=== PATIENT | male | born 1985 | race Caucasian/White ===

== ENCOUNTER → 2016-09-26 | Outpatient (CLI) | payer MEDICAID ==
[~2016-09-26] MED LIST: AMOXICILLIN 8751 TAB PO; AMOXICILLIN/CLA1 TA1 PO; BENADRYL25 M2 PO; CEPHALEXIN500 M1 PO; SUDAFED30 MG PO
== END ==
LOC: COL.PUL 13:48
DX: R06.02 Shortness of breath (principal)
CPT/HCPCS: J7674

== ENCOUNTER 2018-01-13 09:13 | Day surgery (SDC) | payer MEDICAID ==
[2018-01-13] VITALS (8 sets, daily range): BP systolic 112–138; BP diastolic 55–72; PULSE 51–68; TEMP 97.6–98.3
[~2018-01-13] VITALS: Ht 188 cm; Wt 80.0 kg
[2018-01-13 09:43] LABS: HEMATOCRIT 47.7 % (42.0-52.0); HEMOGLOBIN 16.5 g/dl (13.5-18.0); MEAN CELL VOLUME 91 fl (80.0-100.0); MEAN CORPUSCULAR HEMOGLOBIN 31 pg (27.0-31.0); MEAN CORPUSCULAR HGB CONC 35 g/dl (33.0-37.0); MEAN PLATELET VOLUME 9.2 fl (7.4-10.4); PLATELET COUNT 206 K/mm3 (130-400); RED BLOOD COUNT 5.27 M/mm3 (4.20-5.60); REDCELL DISTRIBUTION WIDTH-CV 13.2 % (11.5-14.5)
[2018-01-13 09:50] LABS: INR 0.9 (0.8-3.0); PROTHROMBIN TIME 10.6 SECONDS (9.7-12.8)
[2018-01-13 09:53] LABS: CALCIUM 9.5 mg/dL (8.4-10.2); CREATININE, serum 0.75 mg/dL (0.66-1.25); POTASSIUM 4.2 mmol/L (3.4-5.0)
[2018-01-14 05:17] VITALS: BP 121/58; PULSE 58; TEMP 98
[2018-01-14 07:38] VITALS: BP 114/65; PULSE 60; TEMP 97.8
[2018-01-14] MEDS ORDERED: CARDIZEM CD 12120 MG PO (11:05)
[2018-01-14] MEDS ORDERED: NORCO 325 MG-51 TAB PO (11:16)
== END 2018-01-14 11:55 | disposition home or self-care (01) ==
LOC: COL.CAR 09:13 → MEDICAL 12:05 → COL.CAR 01-14 11:55
PROVIDERS: Internal Medicine Cardiovascular Disease
DX: I49.5 Sick sinus syndrome (principal); G47.30 Sleep apnea, unspecified; F17.210 Nicotine dependence, cigarettes, uncomplicated
CPT/HCPCS: OP; C1769; C1785; C1894; C1898; J0690; J7030

== ENCOUNTER 2019-01-08 00:20 | Inpatient (IN) | payer MEDICAID ==
[~2019-01-08] VITALS: Ht 190.5 cm; Wt 81.8 kg
[2019-01-08] VITALS (730 sets, daily range): BP systolic 107–139; BP diastolic 69–94; PULSE 50–60; TEMP 97.8–98.4; O2SAT 93–100
[~2019-01-08 00:20] MED LIST changes: +CARDIZEM CD 12120 MG PO; +NORCO 325 MG-51 TAB PO
[2019-01-08 01:07] LABS: BASO # 0.1 (0.0-0.2); BASO % 0.6 % (0.0-2.0); EOS # 0.2 (0.0-0.7); EOS % 2.2 % (0-4.0); GRAN # 6.1 (1.4-6.5); GRAN % 55.4 % (42.2-75.2); HEMATOCRIT 44.5 % (42.0-52.0); HEMOGLOBIN 15.3 g/dl (13.5-18.0); LYMPH % 36.5 % (20.0-51.0); MEAN CELL VOLUME 92 fl (80.0-100.0); MEAN CORPUSCULAR HEMOGLOBIN 32 pg (27.0-31.0); MEAN CORPUSCULAR HGB CONC 34 g/dl (33.0-37.0); MEAN PLATELET VOLUME 9.1 fl (7.4-10.4); MONO # 0.6 (0.1-0.6); MONO % 5.1 % (1.7-9.3); PLATELET COUNT 207 K/mm3 (130-400); RED BLOOD COUNT 4.83 M/mm3 (4.20-5.60); REDCELL DISTRIBUTION WIDTH-CV 13.1 % (11.5-14.5)
[2019-01-08 01:19] LABS: ALBUMIN 3.9 gm/dL (3.5-5.0); BILIRUBIN,TOTAL 0.3 mg/dL (0.0-1.0); CALCIUM 8.9 mg/dL (8.4-10.2); CREATININE, serum 0.87 (0.66-1.25); POTASSIUM 3.8 mmol/L (3.4-5.0); TOTAL PROTEIN 6.8 gm/dL (6.4-8.2)
[2019-01-08 01:34] LABS: PROTHROMBIN TIME 11.4 SECONDS (9.7-12.8)
[2019-01-08 05:27] LABS: MAGNESIUM 2.2 mg/dL (1.6-2.3)
[2019-01-08 05:59] LABS: TSH w REFLEX 3.14 uIU/mL (0.465-4.680)
[2019-01-08 06:19] LABS: COLLECTION METHOD CLEAN CATCH
[2019-01-08 06:26] LABS: MUCOUS Present /lpf; PH 6 (5-8); SQUAMOUS EPITHELIAL None Seen /hpf; URINE APPEARANCE Clear; URINE BACTERIA None Seen /hpf; URINE BILIRUBIN Negative (NEGATIVE); URINE BLOOD Negative (NEGATIVE); URINE COLOR Yellow; URINE GLUCOSE Negative (NEGATIVE); URINE KETONE Negative (NEGATIVE); URINE LEUKOCYTE ESTERASE Negative (NEGATIVE); URINE NITRATE Negative (NEGATIVE); URINE PROTEIN(semi-quant) Negative (NEGATIVE); URINE RBC 0-2 /hpf; URINE UROBILINOGEN Negative (NEGATIVE)
[2019-01-08 06:37] LABS: TRICYCLIC ANTIDEPRESS URINE NEGATIVE
--- NOTE | 2019-01-08 07:30 | NUR ---
Bedside report received from AMINATA Byrnes.
--- NOTE | 2019-01-08 07:35 | NUR ---
Assessment complete, patient sleeps between disturbances, denies needs at this time, call light within reach.
--- NOTE | 2019-01-08 08:55 | NUR ---
REY met with the patient to discuss a discharge plan. The pt lives in [place] with one of his two children. The pt does not use any DME and reports independence with ADLSs. The pt's PCP is Dr. Mark Uribe and the pt receives his medications from [facility] in [place]. The pt reports no difficulties obtaining his medications. The pt does not have advanced directives in the EMR, but was interested in obtaining a DPOA-HC form. The pt plans to return home once discharged. There are no additional needs at this time.
--- NOTE | 2019-01-08 09:13 | NUR ---
serology technician in room for ECHO.
--- NOTE | 2019-01-08 11:45 | NUR ---
Patient to rn cardiac cath via bed.
--- NOTE | 2019-01-08 12:02 | NUR ---
SEE MERGE REPORTS FOR MEDICATION ADMINISTRATION TIMES AND INTRA/POST PROCEDURE SEDATION ASSESSMENTS. PT ATE BREAKFAST AT 0800 AND HAD LOVENOX 40MG SQ AT 0730; NOTIFIED, OK TO PROCEED WITH PROCEDURE.
--- NOTE | 2019-01-08 13:33 | NUR ---
Report received from AMINATA Marr at metallurgical lab technician.
--- NOTE | 2019-01-08 13:45 | NUR ---
Patient back from rd lab technician, discussed with patient, he must keep head flat on pillow and right leg straight, patient verbalized understanding. Ice pack applied to left chest. Bed alarm on for patient safety. Call light within reach.
--- NOTE | 2019-01-08 14:00 | NUR ---
Patient needs constant reminder to keep head flat on pillow and right leg straight. Discussed importance of this, at bedside.
--- NOTE | 2019-01-08 14:41 | NUR ---
Patient continues to raise head on bed, bend right leg, and will not leave ice pack to left chest. Discussed importance of all of these things with patient, patient just laughs.
--- NOTE | 2019-01-08 16:00 | NUR ---
Patient resting quietly, sleeps between disturbances, call light within reach.
--- NOTE | 2019-01-08 18:09 | NUR ---
Patient sitting up, eating dinner, right femoral groin site remains soft without hematoma, dressing CDI.
--- NOTE | 2019-01-08 19:05 | NUR ---
Bedside report given to AMINATA Byrnes.
--- NOTE | 2019-01-08 20:10 | NUR ---
Patient assessment completed, please see documentation for details. Patient in bed, no issues to report. Refilled ice bag to apply to shoulder, will continue to monitor.
[2019-01-09] VITALS (110 sets, daily range): BP systolic 114–138; BP diastolic 61–88; PULSE 59–61; TEMP 98–98.6; O2SAT 93–100
--- NOTE | 2019-01-09 03:32 | NUR ---
Report called to AMINATA Lechuga. Patient assisted to room 355 by AMINATA Santacruz via wheelchair, no issues. Will pass off care of patient at this time.
--- NOTE | 2019-01-09 04:25 | NUR ---
PT ARRIVED FROM ICU VIA WHEELCHAIR. PT CAME UP WITH ALL PERSONAL BELONGINGS. PT A/O X4, HAS DRSG TO LEFT UPPER CHEST AREA THAT IS CLEAN, DRY, AND INTACT. PT ALSO, HAS DRSG TO RIGHT GROIN AREA THAT IS CLEAN, DRY, INTACT, NO PAIN, OR HEMATOMA NOTED. PT DOES HAVE PAIN IN LEFT UPPER CHEST AREA THAT IS RATED AT A 5/10. PT ADVISES THAT HE CAN TOLERATE BUT WILL NEED MEDICATION SOON. PT HAS NO PRN MEDICATION THAT CAN BE GIVEN AT THIS TIME. PT GIVEN A SANDWICH BOX AND JUICE TO EAT. PT ATE 100% OF FOOD. PT HAS CALL LIGHT WITHIN REACH AND NO FURTHER NEEDS.
[2019-01-09 07:01] LABS: BASO # 0.1 (0.0-0.2); BASO % 0.5 % (0.0-2.0); EOS # 0.2 (0.0-0.7); EOS % 2.1 % (0-4.0); GRAN # 6.7 (1.4-6.5); GRAN % 63.6 % (42.2-75.2); HEMATOCRIT 44.3 % (42.0-52.0); HEMOGLOBIN 14.9 g/dl (13.5-18.0); LYMPH # 2.7 (1.2-3.4); LYMPH % 25.7 % (20.0-51.0); MEAN CELL VOLUME 93 fl (80.0-100.0); MEAN CORPUSCULAR HEMOGLOBIN 31 pg (27.0-31.0); MEAN CORPUSCULAR HGB CONC 34 g/dl (33.0-37.0); MEAN PLATELET VOLUME 9.4 fl (7.4-10.4); MONO # 0.8 (0.1-0.6); MONO % 7.7 % (1.7-9.3); PLATELET COUNT 189 K/mm3 (130-400); RED BLOOD COUNT 4.76 M/mm3 (4.20-5.60); REDCELL DISTRIBUTION WIDTH-CV 13.2 % (11.5-14.5)
[2019-01-09 07:02] LABS: PROTHROMBIN TIME 11.1 SECONDS (9.7-12.8)
[2019-01-09 07:16] LABS: CALCIUM 8.7 mg/dL (8.4-10.2); CREATININE, serum 0.84 (0.66-1.25); MAGNESIUM 2.2 mg/dL (1.6-2.3); POTASSIUM 3.8 mmol/L (3.4-5.0)
--- NOTE | 2019-01-09 07:41 | NUR ---
PT HAD C/O IV IN RIGHT FOREARM AND REQUESTED IT TO BE REMOVED. IV IN RIGHT FOREARM WAS REMOVED, APPLIED PRESSURE TILL BLEEDING STOPPED, AND PROTECTIVE DRSG APPLIED. PT ALSO HAD C/O PAIN THAT WAS RATED AN 8/10 THAT HE SAID FELT LIKE BRUISING, BUT DID NOT RADIATE IN HIS RIGHT GROIN AREA AND UPPER LEFT CHEST. TYLENOL GIVEN AROUND 0500 AND TRAMADOL GIVEN ABOUT 0620. NO OTHER NEEDS OR CONCERNS, CALL LIGHT WITHIN REACH.
--- NOTE | 2019-01-09 10:30 | NUR ---
Patient was indisposed with the doctor so I was not able to visit.
--- NOTE | 2019-01-09 10:33 | NUR ---
Patient assessment complete. Lung sounds clear throughout. Heart RRR. Bowel sounds present. Pulses strong bilaterally. Right groin heart cath site is CDI, no redness or swelling. Left upper chest site is CDI, mild swelling, sutures intact, dressing removed. Rates pain 4/10. Patient did not come up with sling, it was ordered, patient now wearing sling on left arm. Denies SOB, chest pain, dizziness, N/V. No other needs at this time. Call light within reach.
--- NOTE | 2019-01-09 11:31 | NUR ---
Visited, listened, provided spiritual care.
--- NOTE | 2019-01-09 13:13 | NUR ---
Patient laying in bed, parents at bedside. Patient denies pain when laying down, only bothers him if he gets up. States he doesnt want anything for pain yet. Denies other needs at this time.
--- NOTE | 2019-01-09 16:20 | NUR ---
Plan is to return home with his Mother in [facility] . Patient reports that he does not have any care needs and does not use medical equipment on a daily basis but did have a complaint. Patient reports that he could not obtain is medications from staff. SW called house and gave report. Patient shars that his PCP is Dr. Aly Uribe and he uses [facility] for medciations. Patient reports being in pain more at night. Patient indicated that he could transport him self. Nothing follows.
--- NOTE | 2019-01-09 19:21 | NUR ---
Patient sleeping at shift change, report given to AMINATA Lechuga.
--- NOTE | 2019-01-09 20:00 | NUR ---
PT HAS AND SON IN ROOM WITH HIM. PT HAS SLING ON LEFT ARM. INCISION TO LEFT UPPER CHEST AREA IS OPEN TO AIR AND HAS NO REDNESS, WARMTH, OR SWELLING. PT WANTED 7 YEAR OLD SON TO SPEND THE NIGHT IN THE HOSPITAL WITH HIM. ADVISED THAT 7 YEAR OLD SON COULD NOT STAY AND IS ONLY ALLOWED TO STAY TILL 1999. PT GIVEN TYLENOL FOR PAIN. PT ADVISED THAT HE SWUNG HIS RIGHT LEG OUT OF BED AND PULLED A MUSCLE THAT CAUSED HIM GREAT PAIN. PT RATED AT A 8/10 THAT IS SHARP IN THAT ONE AREA. CALL LIGHT WITHIN REACH.
[2019-01-10 00:04] VITALS: BP 121/66; PULSE 60; TEMP 97.7
[2019-01-10 03:51] VITALS: BP 110/62; PULSE 60; TEMP 97.9
[2019-01-10 06:35] LABS: BASO # 0.1 (0.0-0.2); BASO % 0.6 % (0.0-2.0); EOS # 0.3 (0.0-0.7); EOS % 2.6 % (0-4.0); GRAN # 5.6 (1.4-6.5); GRAN % 58.9 % (42.2-75.2); HEMATOCRIT 45.7 % (42.0-52.0); HEMOGLOBIN 15.2 g/dl (13.5-18.0); LYMPH # 2.8 (1.2-3.4); LYMPH % 29.5 % (20.0-51.0); MEAN CELL VOLUME 94 fl (80.0-100.0); MEAN CORPUSCULAR HEMOGLOBIN 31 pg (27.0-31.0); MEAN CORPUSCULAR HGB CONC 33 g/dl (33.0-37.0); MEAN PLATELET VOLUME 9.6 fl (7.4-10.4); MONO # 0.8 (0.1-0.6); MONO % 7.9 % (1.7-9.3); PLATELET COUNT 185 K/mm3 (130-400); RED BLOOD COUNT 4.88 M/mm3 (4.20-5.60); REDCELL DISTRIBUTION WIDTH-CV 13.2 % (11.5-14.5)
[2019-01-10 06:39] LABS: PROTHROMBIN TIME 11.5 SECONDS (9.7-12.8)
[2019-01-10 06:47] LABS: CREATININE, serum 0.75 (0.66-1.25); MAGNESIUM 2.1 mg/dL (1.6-2.3); POTASSIUM 4.2 mmol/L (3.4-5.0)
--- NOTE | 2019-01-10 06:59 | NUR ---
PT SLEPT/RESTED WELL, DURING THE NIGHT, AT BEDSIDE. PT WAS GIVEN TRAMADOL AT AROUND 2200 AND PT DID NOT REQUEST ANYMORE PAIN MEDICATION. GROIN AREA PT STATES FEELS MUCH BETTER, ASSESSED AND NO DRSG C/D/I AND NO HEMATOMA. UPPER LEFT CHEST INCISION C/D/I AND OPEN TO AIR. PT REFUSED TO PLACE ICE ON AREA. ICE WAS OFFERED. CALL LIGHT IN REACH.
[2019-01-10 08:25] VITALS: BP 128/60; PULSE 60; TEMP 97.5
[2019-01-10] MEDS ORDERED: CEPHALEXIN500 M1 PO (08:48)
[2019-01-10] MEDS ORDERED: BETAPACE 80MG80 MG PO (08:49)
--- NOTE | 2019-01-10 09:10 | NUR ---
Patient laying in bed, girlfriend at bedside. Patient assessment complete. lung sounds clear throughout, heart RRR, bowel sounds present. Pulses strong bilaterally. Patient states he has pain but "doesn't want anything for it", wants to "push through", "doesn't want to be tired". Patient isn't going home on pain meds. Left upper chest side is CDI, no swelling or redness. Right groin site is CDI, no hematoma or redness. LFA IV removed, patient is being discharged. Catheter tip intact, no complications. Call light within reach. Awaiting cardio rounds to discharge. Denies other needs at this time.
--- NOTE | 2019-01-10 11:45 | NUR ---
Patient discharge instructions reviewed and discussed with patient. Patient verbalizes understanding, all questions answered. Left wrist IV removed, catheter tip intact, no complications. Denies other needs. Escorted out with this nurse, patient ambulatory.
== END 2019-01-10 11:45 | disposition home or self-care (01) | DRG 244 ==
LOC: COL.ER 00:20 → ICU 02:14 → MEDICAL 01-09 03:45
PROVIDERS: Emergency Medicine; Nurse Practitioner Family; ADMIT Hospitalist
PROC: B2111ZZ Fluoroscopy of Multiple Coronary Arteries using Low Osmolar Contrast (ICD-10-PCS; principal; 2019-01-08)
PROC: 02H70JZ Insertion of Pacemaker Lead into Left Atrium, Open Approach (ICD-10-PCS; principal; 2019-01-08)
PROC: 0JH606Z Insertion of Pacemaker, Dual Chamber into Chest Subcutaneous Tissue and Fascia, Open Approach (ICD-10-PCS; principal; 2019-01-08)
PROC: 4B02XSZ Measurement of Cardiac Pacemaker, External Approach (ICD-10-PCS; principal; 2019-01-08)
PROC: 02PA0MZ Removal of Cardiac Lead from Heart, Open Approach (ICD-10-PCS; principal; 2019-01-08)
PROC: 0JPT0PZ Removal of Cardiac Rhythm Related Device from Trunk Subcutaneous Tissue and Fascia, Open Approach (ICD-10-PCS; principal; 2019-01-08)
DX: I47.2 Ventricular tachycardia (principal); Z95.0 Presence of cardiac pacemaker; I49.5 Sick sinus syndrome; F17.210 Nicotine dependence, cigarettes, uncomplicated; G47.33 Obstructive sleep apnea (adult) (pediatric)
CPT/HCPCS: 99222-AI; 99231-AI; 99239; C1760; C1769; C1894; J0282; J0690; J1650; J2250; J2704; J3010; J7030; J7060; Q9967

== ENCOUNTER 2019-06-23 14:25 | Emergency (ER) | payer MEDICAID ==
[~2019-06-23] VITALS: Ht 190.5 cm; Wt 81.8 kg
[~2019-06-23 14:25] MED LIST changes: +BETAPACE 80MG80 MG PO
[2019-06-23 14:40] VITALS: TEMP 97.2
[2019-06-23 16:05] LABS: BASO # 0.1 (0.0-0.2); BASO % 0.8 % (0.0-2.0); EOS # 0.3 (0.0-0.7); EOS % 3.7 % (0-4.0); GRAN # 4.5 (1.4-6.5); GRAN % 52.3 % (42.2-75.2); HEMATOCRIT 47.3 % (42.0-52.0); HEMOGLOBIN 16.2 g/dl (13.5-18.0); LYMPH # 3.1 (1.2-3.4); LYMPH % 36.1 % (20.0-51.0); MEAN CELL VOLUME 92 fl (80.0-100.0); MEAN CORPUSCULAR HEMOGLOBIN 31 pg (27.0-31.0); MEAN CORPUSCULAR HGB CONC 34 g/dl (33.0-37.0); MEAN PLATELET VOLUME 9.4 fl (7.4-10.4); MONO # 0.6 (0.1-0.6); MONO % 6.6 % (1.7-9.3); PLATELET COUNT 201 K/mm3 (130-400); RED BLOOD COUNT 5.16 M/mm3 (4.20-5.60)
[2019-06-23 16:16] LABS: ALANINE AMINOTRANSFERASE 20 U/L (21-72); ALBUMIN 4.2 gm/dL (3.5-5.0); ALKALINE PHOSPHATASE 50 U/L (50-136); ANION GAP 6 mmol/L (7-16); AST,SGOT 24 U/L (15-37); BILIRUBIN,TOTAL 0.4 mg/dL (0.0-1.0); BLOOD UREA NITROGEN 17 mg/dL (9-20); CALCIUM 9.3 mg/dL (8.4-10.2); CARBON DIOXIDE 25 mmol/L (22-30); CHLORIDE 108 mmol/L (98-107); CREATININE, serum 0.75 (0.66-1.25); GLUCOSE 97 mg/dL (74-106); POTASSIUM 4.3 mmol/L (3.4-5.0); SODIUM 139 mmol/L (137-145); TOTAL PROTEIN 7.1 gm/dL (6.4-8.2)
[2019-06-23 16:18] LABS: C-REACTIVE PROTEIN < 0.5 mg/dL (0.0-0.9)
[2019-06-23 16:26] LABS: TROPONIN-I < 0.012 ng/mL (0.000-0.035)
[2019-06-23] MEDS ORDERED: OMNICEF 300MG300 MG PO (17:21)
[2019-06-23 17:37] VITALS: BP 103/66; PULSE 60
== END 2019-06-23 17:37 | disposition home or self-care (01) ==
LOC: COL.ER 14:25
PROVIDERS: Emergency Medicine
DX: J01.90 Acute sinusitis, unspecified (principal); J20.9 Acute bronchitis, unspecified; F17.210 Nicotine dependence, cigarettes, uncomplicated

== ENCOUNTER 2019-12-17 11:07 | Inpatient (IN) | payer MEDICAID ==
[~2019-12-17] VITALS: Ht 182.9 cm; Wt 85.5 kg
[~2019-12-17 11:07] MED LIST changes: +OMNICEF 300MG300 MG PO
--- NOTE | 2019-12-17 11:52 | NUR ---
Patient arrived via EMS. Patient is alert and oriented, answers questions appropriately. Patient reports chest pain is unchanged at 5/10 substernal. Cardiology in with patient at this time.
[2019-12-17 13:32] VITALS: BP 106/61; BP 115/70; PULSE 59
[2019-12-17] MEDS ORDERED: PREDNISONE50 MG PO (14:42)
[2019-12-17] MEDS ORDERED: MELATIN 3 MG-11 TAB PO (14:43)
[2019-12-17] MEDS ORDERED: TYLENOL 325MG325 MG PO (14:44)
[2019-12-17] MEDS ORDERED: PROAIR HFA0.09 MG/AC IH (14:45)
[2019-12-17 16:00] VITALS: BP 123/71; PULSE 77; TEMP 98.2
--- NOTE | 2019-12-17 18:49 | NUR ---
Patient intermittently resting, rouses easily, is alert and oriented while awake. Patient reports that pain comes and goes, but when he has it, it is not improved from what it was when he arrived. Patient requested another dinner tray, called and ordered from dining services. Patient denies needs at this time, call light within reach.
--- NOTE | 2019-12-17 20:20 | NUR ---
Pt. laying in bed at this tiME. pT. IS a&ox3, ASSESSMENT COMPLETE. INT to rt. ac patent. Pt. denies pain or other needs, call light within reach.
[2019-12-17 21:13] VITALS: BP 131/79; PULSE 61; TEMP 97.9
[2019-12-18 00:08] VITALS: BP 116/66; PULSE 61
[2019-12-18 04:30] VITALS: BP 114/71; PULSE 63; TEMP 97.8
[2019-12-18 05:11] LABS: ANION GAP 5 mmol/L (7-16); BLOOD UREA NITROGEN 17 mg/dL (9-20); CALCIUM 9.2 mg/dL (8.4-10.2); CARBON DIOXIDE 24 mmol/L (22-30); CHLORIDE 107 mmol/L (98-107); CREATININE, serum 0.69 (0.66-1.25); GLUCOSE 106 mg/dL (74-106); MAGNESIUM 2.2 mg/dL (1.6-2.3); POTASSIUM 4.3 mmol/L (3.4-5.0); SODIUM 136 mmol/L (137-145)
[2019-12-18 05:27] LABS: TROPONIN-I < 0.012 ng/mL (0.000-0.035)
[2019-12-18 07:56] VITALS: BP 102/64; PULSE 64; TEMP 97.5
--- NOTE | 2019-12-18 08:06 | NUR ---
Pt assessment complete. Pt is laying in bed upon entry, he is A/O x4. His breathing is even and unlabored on RA. Pt denies SOB. No cough present at this time. Pt denies pain at this time. No N/V. Asking about COVID results, POC discussed with patient. No needs at this time. Call light within reach.
--- NOTE | 2019-12-18 08:16 | NUR ---
Spoke with Yumiko RN at [facility] pts COVID results negative
--- NOTE | 2019-12-18 10:46 | NUR ---
Pt leaving for CT scan at this time.
[2019-12-18 12:03] VITALS: BP 121/75; PULSE 61; TEMP 97.8
[2019-12-18] MEDS ORDERED: PREDNISONE20 MG PO (12:36)
--- NOTE | 2019-12-18 13:23 | NUR ---
Discharge instructions and paperwork reviewed with patient, all questions answered at this time. IV to RAC dc'd catheter tip intact. Pt walked out at this time.
--- NOTE | 2019-12-18 13:27 | NUR ---
Plan is to return to [facility] and resides alone. Patient shares that his transportation is in route. Patient reports that he has a pacemaker and uses a CPAP machine at night. Patient indicated that his PCP is Dr. Sampson Rodríguez. Danyan reports that he gets his medicince from [facility] in [facility]. Patient reports that his EMR contact is Irma Nicole and he gave intake the informations. Patient denies any care concerns or additional supports to DC> NOthing FOllows.
== END 2019-12-18 13:24 | disposition home or self-care (01) | DRG 316 ==
LOC: IMCU 11:07 → EU 12:15 → IMCU 12:19 → EU 12-18 13:24
PROVIDERS: ADMIT Internal Medicine
DX: I31.9 Disease of pericardium, unspecified (principal); I49.5 Sick sinus syndrome; Z95.810 Presence of automatic (implantable) cardiac defibrillator; G47.33 Obstructive sleep apnea (adult) (pediatric); Z87.891 Personal history of nicotine dependence; G89.29 Other chronic pain; Z03.818 Encounter for observation for suspected exposure to other biological agents ruled out
CPT/HCPCS: 99222-AI; 99239; J7512; Q9967

== ENCOUNTER 2020-03-22 20:23 | Emergency (ER) | payer MEDICAID ==
[~2020-03-22] VITALS: Ht 190.5 cm; Wt 84.1 kg
[~2020-03-22 20:23] MED LIST changes: +MELATIN 3 MG-11 TAB PO; +PREDNISONE20 MG PO; +PREDNISONE50 MG PO; +PROAIR HFA0.09 MG/AC IH; +TYLENOL 325MG325 MG PO
[2020-03-22 20:28] VITALS: TEMP 98.4
[2020-03-22 22:15] VITALS: BP 141/85; PULSE 71
== END 2020-03-22 22:15 | disposition home or self-care (01) ==
LOC: COL.ER 20:23
DX: K91.840 Postprocedural hemorrhage of a digestive system organ or structure following a digestive system procedure (principal); F17.210 Nicotine dependence, cigarettes, uncomplicated

== ENCOUNTER 2020-04-28 12:46 | Inpatient (IN) | payer MEDICAID ==
[~2020-04-28] VITALS: Ht 188 cm; Wt 82.4 kg
[2020-04-28 13:40] LABS: BASO # 0.1 (0.0-0.2); BASO % 0.8 % (0.0-2.0); EOS # 0.3 (0.0-0.7); EOS % 3.6 % (0-4.0); GRAN # 4.1 (1.4-6.5); GRAN % 53.5 % (42.2-75.2); HEMATOCRIT 46.6 % (42.0-52.0); HEMOGLOBIN 15.9 g/dl (13.5-18.0); LYMPH # 2.6 (1.2-3.4); LYMPH % 34.7 % (20.0-51.0); MEAN CELL VOLUME 91 fl (80.0-100.0); MEAN CORPUSCULAR HEMOGLOBIN 31 pg (27.0-31.0); MEAN CORPUSCULAR HGB CONC 34 g/dl (33.0-37.0); MONO # 0.5 (0.1-0.6); MONO % 7.1 % (1.7-9.3); PLATELET COUNT 193 K/mm3 (130-400); REDCELL DISTRIBUTION WIDTH-CV 12.5 % (11.5-14.5)
[2020-04-28 13:56] LABS: BILIRUBIN,TOTAL 0.6 mg/dL (0.0-1.0); CALCIUM 9.1 mg/dL (8.4-10.2); CREATININE, serum 0.72 (0.66-1.25); MAGNESIUM 2.1 mg/dL (1.6-2.3); POTASSIUM 4.2 mmol/L (3.4-5.0); TOTAL PROTEIN 6.7 gm/dL (6.4-8.2)
--- NOTE | 2020-04-28 18:28 | NUR ---
Patient alert and oriented. denies any pain. Patient was transferred from ER post ROSE. cardioverted from Afib to paced Sinus rhythm. Patient medication reconciliation, history and physical assesment completed. patient resting in the room at the moment.
[2020-04-28 18:29] VITALS: BP 104/53; PULSE 62; TEMP 98
[2020-04-28 19:20] VITALS: BP 106/51; PULSE 67; TEMP 98.2
--- NOTE | 2020-04-28 20:26 | NUR ---
Resting in bed. Assessment complete. Lungs clear. Heart sounds normal. Bowels active x4. Pulses present throughout. No edema noted. INT right forearm flushed without complications. Denies pain. Denies needs. Call light in reach.
--- NOTE | 2020-04-28 21:39 | NUR ---
Patient showered and returned to bed. Denies other needs. Call light in reach.
[2020-04-28 23:36] VITALS: BP 131/77; PULSE 60; TEMP 99.2
--- NOTE | 2020-04-28 23:36 | NUR ---
Resting in bed. Denies needs. Call light in reach.
--- NOTE | 2020-04-29 01:56 | NUR ---
Resting in bed. Denies needs. Call light in reach.
[2020-04-29 03:23] VITALS: BP 125/57; PULSE 61; TEMP 98
--- NOTE | 2020-04-29 05:45 | NUR ---
Patient had uneventful night. Resting in bed this AM. Call light in reach.
--- NOTE | 2020-04-29 07:07 | NUR ---
Report given to AMINATA Farias
[2020-04-29 07:57] VITALS: BP 118/70; PULSE 61; TEMP 97.9
--- NOTE | 2020-04-29 08:00 | NUR ---
Patient is alert and oriented. denies any pain. resting in bed at this time.
--- NOTE | 2020-04-29 11:31 | NUR ---
Plan: Plan to return home to [facility]. Assessment: Patient reports that he resides alone. Patient reports that he has a pacemaker defibulator. Patietn reports that his PCP is Dr. Sampson Cullen. Patient denies the use of of any other DME. Patient reports that he has transportation. Patient rports that his emergency contact is on the EMR Alexis Prietoves. Patient denies having a POA. Patient denies the need for HHS. Action: SW could not identify any concerns for additional care.
[2020-04-29 11:32] LABS: CALCIUM 8.6 mg/dL (8.4-10.2); CREATININE, serum 0.84 (0.66-1.25); MAGNESIUM 2.2 mg/dL (1.6-2.3); POTASSIUM 3.9 mmol/L (3.4-5.0)
[2020-04-29 12:26] VITALS: BP 116/52; PULSE 81; TEMP 97.7
--- NOTE | 2020-04-29 12:28 | NUR ---
stopped by and visited with patient. Nothing else needed at this time.
[2020-04-29] MEDS ORDERED: ELIQUIS 5MG PO (13:39)
[2020-04-29] MEDS ORDERED: BETAPACE 120MG120 MG PO (13:40)
--- NOTE | 2020-04-29 16:41 | NUR ---
Patient sotalol dose increased from 80mg to 120mg. patient discharged with new order for Eliquis 5mg BID PO. Patient was informed to follow up with physician office clin asst and his Primary care physician. INT discontinued. Patient discharge home with family member.
== END 2020-04-29 15:45 | disposition home or self-care (01) | DRG 310 ==
LOC: COL.ER 12:46 → MEDICAL 14:45
PROVIDERS: Family Medicine; Physician Assistant; ADMIT Internal Medicine
PROC: 5A2204Z Restoration of Cardiac Rhythm, Single (ICD-10-PCS; principal; 2020-04-28)
DX: I48.0 Paroxysmal atrial fibrillation (principal); G47.33 Obstructive sleep apnea (adult) (pediatric); F17.210 Nicotine dependence, cigarettes, uncomplicated; I49.5 Sick sinus syndrome; Z95.810 Presence of automatic (implantable) cardiac defibrillator
CPT/HCPCS: 99222-AI; 99231-AI; 99239; J2250; J3010

== ENCOUNTER 2020-05-12 02:35 | Emergency (ER) | payer MEDICAID ==
[~2020-05-12] VITALS: Ht 190.5 cm; Wt 84.1 kg
[~2020-05-12 02:35] MED LIST changes: +BETAPACE 120MG120 MG PO; +ELIQUIS 5MG PO
[2020-05-12 02:41] VITALS: TEMP 98.1
[2020-05-12 04:00] VITALS: BP 120/82; PULSE 70
== END 2020-05-12 04:00 | disposition home or self-care (01) ==
LOC: COL.ER 02:35
DX: J30.9 Allergic rhinitis, unspecified (principal); I48.91 Unspecified atrial fibrillation; F17.200 Nicotine dependence, unspecified, uncomplicated; Z79.01 Long term (current) use of anticoagulants

== ENCOUNTER 2021-02-25 20:13 | Emergency (ER) | payer MEDICAID ==
[~2021-02-25] VITALS: Ht 190.5 cm; Wt 90.9 kg
[~2021-02-25 20:13] MED LIST changes: +DIGITEK0.125 MG PO; +PROTONIX 40MG T40 MG PO
[2021-02-25 21:05] LABS: BASO % 0.4 % (0.0-2.0); EOS # 0.3 (0.0-0.7); EOS % 4.2 % (0-4.0); GRAN # 3.7 (1.4-6.5); GRAN % 53.8 % (42.2-75.2); HEMOGLOBIN 16.2 g/dl (13.5-18.0); LYMPH # 2.4 (1.2-3.4); LYMPH % 34.6 % (20.0-51.0); MEAN CELL VOLUME 91 fl (80.0-100.0); MEAN CORPUSCULAR HEMOGLOBIN 31 pg (27.0-31.0); MEAN CORPUSCULAR HGB CONC 34 g/dl (33.0-37.0); MEAN PLATELET VOLUME 10.3 fl (7.4-10.4); MONO # 0.5 (0.1-0.6); MONO % 6.6 % (1.7-9.3); PLATELET COUNT 193 K/mm3 (130-400); REDCELL DISTRIBUTION WIDTH-CV 12.3 % (11.5-14.5)
[2021-02-25 21:21] LABS: ALANINE AMINOTRANSFERASE 24 U/L (4-49); ALBUMIN 3.7 gm/dL (3.5-5.0); ALKALINE PHOSPHATASE 52 U/L (50-136); ANION GAP 4 mmol/L (7-16); AST,SGOT 26 U/L (15-37); BILIRUBIN,TOTAL 0.4 mg/dL (0.0-1.0); BLOOD UREA NITROGEN 10 mg/dL (9-20); CALCIUM 8.8 mg/dL (8.4-10.2); CARBON DIOXIDE 25 mmol/L (22-30); CHLORIDE 110 mmol/L (98-107); CREATININE, serum 0.83 (0.66-1.25); GLUCOSE 100 mg/dL (74-106); POTASSIUM 3.9 mmol/L (3.4-5.0); SODIUM 138 mmol/L (137-145); TOTAL PROTEIN 6.8 gm/dL (6.4-8.2)
[2021-02-25 21:34] LABS: TROPONIN-I < 0.012 ng/mL (0.000-0.035)
[2021-02-25 23:16] VITALS: BP 142/93; PULSE 63; TEMP 98.4
== END 2021-02-25 23:21 | disposition home or self-care (01) ==
LOC: COL.ER 20:13
PROVIDERS: Personal Emergency Response Attendant
DX: U07.1 COVID-19 (principal); I48.91 Unspecified atrial fibrillation; Z79.01 Long term (current) use of anticoagulants

== ENCOUNTER 2021-02-28 20:39 | Emergency (ER) | payer MEDICAID ==
[~2021-02-28] VITALS: Ht 188 cm; Wt 90.9 kg
[2021-02-28 21:19] VITALS: BP 131/85; PULSE 68; TEMP 98.4
== END 2021-02-28 21:19 | disposition home or self-care (01) ==
LOC: COL.ER 20:39
DX: U07.1 COVID-19 (principal); Z79.01 Long term (current) use of anticoagulants

== ENCOUNTER 2021-03-21 02:45 | Emergency (ER) | payer MEDICAID ==
[~2021-03-21] VITALS: Ht 188 cm; Wt 81.8 kg
[2021-03-21 03:56] LABS: BASO # 0.1 (0.0-0.2); BASO % 0.7 % (0.0-2.0); EOS # 0.3 (0.0-0.7); EOS % 3.7 % (0-4.0); GRAN # 3.2 (1.4-6.5); GRAN % 42.2 % (42.2-75.2); HEMATOCRIT 46.1 % (42.0-52.0); HEMOGLOBIN 15.5 g/dl (13.5-18.0); LYMPH # 3.4 (1.2-3.4); LYMPH % 44.4 % (20.0-51.0); MEAN CELL VOLUME 92 fl (80.0-100.0); MEAN CORPUSCULAR HEMOGLOBIN 31 pg (27.0-31.0); MEAN CORPUSCULAR HGB CONC 34 g/dl (33.0-37.0); MEAN PLATELET VOLUME 9.3 fl (7.4-10.4); MONO # 0.7 (0.1-0.6); MONO % 8.7 % (1.7-9.3); PLATELET COUNT 184 K/mm3 (130-400); RED BLOOD COUNT 5.01 M/mm3 (4.20-5.60); REDCELL DISTRIBUTION WIDTH-CV 12.6 % (11.5-14.5)
[2021-03-21 04:04] LABS: PROTHROMBIN TIME 10.5 SECONDS (9.7-12.8)
[2021-03-21 04:07] LABS: PARTIAL THROMBOPLASTIN TIME 30.6 SECONDS (26.0-37.0)
[2021-03-21 04:09] LABS: ALANINE AMINOTRANSFERASE 25 U/L (4-49); ALBUMIN 3.8 gm/dL (3.5-5.0); ALKALINE PHOSPHATASE 52 U/L (50-136); ANION GAP 9 mmol/L (7-16); AST,SGOT 24 U/L (15-37); BILIRUBIN,TOTAL 0.2 mg/dL (0.0-1.0); BLOOD UREA NITROGEN 13 mg/dL (9-20); CARBON DIOXIDE 23 mmol/L (22-30); CHLORIDE 107 mmol/L (98-107); CREATININE, serum 0.81 (0.66-1.25); GLUCOSE 99 mg/dL (74-106); POTASSIUM 3.6 mmol/L (3.4-5.0); SODIUM 139 mmol/L (137-145); TOTAL PROTEIN 6.9 gm/dL (6.4-8.2)
[2021-03-21 04:17] LABS: LIPASE 237 U/L (23-300)
[2021-03-21 04:20] LABS: TROPONIN-I < 0.012 ng/mL (0.000-0.035)
[2021-03-21 06:36] VITALS: BP 113/72; PULSE 63; TEMP 97.9
== END 2021-03-21 06:43 | disposition home or self-care (01) ==
LOC: COL.ER 02:45
PROVIDERS: Emergency Medicine
DX: R10.32 Left lower quadrant pain (principal); R07.89 Other chest pain; Z95.0 Presence of cardiac pacemaker; Z95.818 Presence of other cardiac implants and grafts; Z79.01 Long term (current) use of anticoagulants
CPT/HCPCS: J7030